=== PATIENT | male | born 1980 | race Caucasian/White ===

== ENCOUNTER → 2018-08-01 | Outpatient (CLI) | payer BC ==
--- NOTE | 2018-08-02 12:07 | RAD ---
EXAM DESCRIPTION: Knee,Left 2 or More Views CLINICAL HISTORY: 37 years Male, PAIN TECHNIQUE: 2 views of the left knee were performed. COMPARISON: None available. FINDINGS: The visualized bones appear well mineralized. No acute fracture or dislocation. Medial tibiofemoral joint space narrowing is noted. Suprapatellar joint effusion. The soft tissues appear grossly unremarkable. IMPRESSION: Medial tibiofemoral joint space narrowing is noted. Suprapatellar joint effusion. Electronically signed by: Arnaldo Valencia MD 08/02/2018 12:04 PM [facility]
== END ==
LOC: RAD 18:26
PROVIDERS: ATTEND Nurse Practitioner Family
DX: M25.562 Pain in left knee (principal); M25.462 Effusion, left knee